=== PATIENT | female | born 1975 | race African-American/Black ===

== ENCOUNTER 2016-05-19 05:36 | Emergency (ER) | payer BC, OTHER ==
[~2016-05-19] VITALS: Ht 149.9 cm; Wt 85.7 kg
[~2016-05-19 05:36] MED LIST: ALEVE PO; ALEVE220 MG PO; Aspirin E.C. PO; BACTRIM,SEPT1 TABLE1 PO; CARAFATE1 GM PO; CIPRO500 MG PO; CIPRO750 MG PO; CLINDAMYCIN HC300 MG PO; CYMBALTA60 MG PO; Ceftin PO; DIFLUCAN200 MG PO; DILAUDID2 MG PO; ENDOCET 5-3251 EACH PO; ERY-TAB250 MG; ERYTHROMYCIN250 M1 PO; FLUCONAZOLE100 MG PO; FLUCONAZOLE150 MG; FLUCONAZOLE150 MG PO; GLUCAGON1 MG; GLUCAGON1 MG IM; HYDROMORPHONE HC4 MG PO; IBUPROFEN800 MG PO; INSULIN PUMP SCCONT; IRON INFUSION IV; JANUVIA100 MG; KEFLEX500 MG PO; LASIX20 MG PO; LEVEMIR100 UNIT/2; LEVEMIR100 UNIT/2 SC; LEVO-T88 MCG PO; LEVOFLOXACIN500 MG PO; LEVOTHYROXINE88 MCG; LEVOTHYROXINE88 MCG PO; LORTAB 5-325 M1 EACH PO; MAVIK1 MG PO; MOTRIN600 MG PO; MOTRIN800 MG PO; MULTIPLE VITAM1 EACH PO; NOVOLIN N100 UNITS/; NOVOLOG 10100 UNITS/; NOVOLOG 10100 UNITS/ SQ; OMEPRAZOLE40 M1; ONDANSETRON ODT4 MG; OXYBUTYNIN CHLOR5 M1; PANTOPRAZOLE SO40 MG; PERCOCET 5/31 TABLET PO; PHENAZOPYRIDIN200 MG; PRAVASTATIN SOD10 MG PO; PRAVASTATIN SOD40 MG; PROTONIX40 MG PO; PROzac PO; RANITIDINE HCL300 MG; SUCRALFATE1 GM; TRANDOLAPRIL1 MG; VICTOZA 2-0.6 MG/0.1 SC; VITAMIN D5000 UNI1 PO; [UNRECOGNIZED DRUG - OTHER] PO; [UNRECOGNIZED DRUG - SUPPLY]
[2016-05-19 06:15] LABS: HEMATOCRIT 41.1 % (36.0-46.0); MCHC 33.8 G/DL (30.0-36.0); MCV 88.6 FL (83-99); MEAN PLAT.VOLUME 9.1 uM^3 (9.5-12.4); PLATELET COUNT 358 K/uL (156-360); RBC DIS.WIDTH-CV 12.1 % (11.8-14.6); RBC DIS.WIDTH-SD 39.5 % (39-53); RED BLOOD COUNT 4.64 M/uL (3.80-5.20); WHITE BLOOD COUNT 7.3 K/uL (4.1-10.2)
[2016-05-19 06:26] LABS: CHLORIDE 103 mEq/L (99-109); POTASSIUM 3.4 mEq/L (3.7-5.4); SODIUM 139 mEq/L (136-147)
[2016-05-19 06:28] LABS: GLUCOSE 94 mg/dL (70-99)
[2016-05-19 06:29] LABS: ANION GAP 13 MEQ/L (2-14)
[2016-05-19 06:30] LABS: TOTAL BILIRUBIN 0.6 mg/dL (0.0-1.0)
[2016-05-19 06:31] LABS: ALKALINE PHOSPHATASE 52 IU/L (3-129)
[2016-05-19 06:32] LABS: GFR ESTIMATE (CALCULATED) > 59 mL/min/
[2016-05-19 06:33] LABS: UREA NITROGEN (BUN) 6 mg/dL (9-23)
[2016-05-19 06:35] LABS: LIPASE 32 U/L (1.0-51.0)
[2016-05-19 06:41] LABS: QUANTITATIVE HCG < 4.0 MIU/ML
[2016-05-19 08:40] LABS: ADD MIUA? YES; BILIRUBIN NEGATIVE; BLOOD NEGATIVE; COLOR YELLOW ((YELLOW)); GLUCOSE (STRIP) NEGATIVE; KETONES NEGATIVE; LEUKOCYTES NEGATIVE; NITRITE NEGATIVE; PROTEIN (STRIP) NEGATIVE; SPECIFIC GRAVITY 1.011 (1.000-1.030); UROBILINOGEN 0.2 MG/DL (0.2-1.0)
[2016-05-19 08:52] LABS: BACTERIA RARE /HPF; BUDDING YEAST 2+; EPITHELIAL CELLS RARE /HPF; MUCUS TRACE /LPF; RED BLOOD CELLS NONE SEEN /HPF (0-5); UCUL ADDED? NO; UNCLASSIFIED CASTS 0-5 /LPF; WHITE BLOOD CELLS 0-5 /HPF (0-5)
[2016-05-19] MEDS ORDERED: ZOFRAN ODT4 MG PO (11:36)
[2016-05-19] MEDS ORDERED: BENTYL10 MG PO (11:36)
[2016-05-19] MEDS ORDERED: BENTYL20 MG PO (11:39)
[2016-05-19 12:39] VITALS: BP 98/72
== END 2016-05-19 12:41 | disposition home or self-care (01) ==
LOC: EME → EDBD 05:36 → EME 12:41
PROVIDERS: Emergency Medicine
DX: R10.13 Epigastric pain (principal); R11.2 Nausea with vomiting, unspecified; E11.43 Type 2 diabetes mellitus with diabetic autonomic (poly)neuropathy; K21.9 Gastro-esophageal reflux disease without esophagitis; E03.9 Hypothyroidism, unspecified; Z87.442 Personal history of urinary calculi; Z96.41 Presence of insulin pump (external) (internal)
CPT/HCPCS: 74177; 76705; 80053; 81003; 83690; 84702; 85027; 87210; 87491; 87591; 93005; 99281; 99285; J2270; J2405; J2765; J3010; J7030

== ENCOUNTER 2016-07-27 08:03 | Inpatient (IN) | payer BC, OTHER ==
[~2016-07-27] VITALS: Ht 149.9 cm; Wt 88.2 kg
[~2016-07-27 08:03] MED LIST changes: +BENTYL10 MG PO; +BENTYL20 MG PO; +SYNTHROID75 MCG PO; +ZOFRAN ODT4 MG PO
[2016-08-04 10:45] LABS: POINT-OF-CARE METER ID UU14174212
[2016-08-04] MEDS ORDERED: CEPHALEXIN500 MG PO (10:45)
[2016-08-04] MEDS ORDERED: PRAVASTATIN SOD20 MG PO (10:46)
[2016-08-04 10:52] VITALS: BP 119/85
[2016-08-04 13:49] LABS: POINT-OF-CARE METER ID UU13113675
[2016-08-04 16:58] VITALS: BP 121/73
[2016-08-04 18:52] LABS: HEMATOCRIT 37.4 % (36.0-46.0); MCH 30.7 PG (29.0-34.0); MCHC 33.7 G/DL (30.0-36.0); MEAN PLAT.VOLUME 8.7 uM^3 (9.5-12.4); PLATELET COUNT 282 K/uL (156-360); RBC DIS.WIDTH-CV 12.3 % (11.8-14.6); RBC DIS.WIDTH-SD 41.3 % (39-53); RED BLOOD COUNT 4.11 M/uL (3.80-5.20); WHITE BLOOD COUNT 11.1 K/uL (4.1-10.2)
[2016-08-04 19:15] LABS: ANION GAP 10 MEQ/L (2-14); CHLORIDE 104 MEQ/L (99-109); GFR ESTIMATE (CALCULATED) > 59 mL/min/; GLUCOSE 128 mg/dL (70-99); POTASSIUM 3.9 MEQ/L (3.7-5.4); SAMPLE HEMOLYSIS CHECK 0; SAMPLE ICTERIC CHECK 0; SAMPLE LIPEMIA CHECK 0; SODIUM 138 MEQ/L (136-147); UREA NITROGEN (BUN) 7 mg/dL (9-23)
[2016-08-04 19:30] VITALS: BP 115/62
[2016-08-04 21:34] LABS: POINT-OF-CARE METER ID UU14162508
[2016-08-04 23:16] VITALS: BP 119/75
[2016-08-05 03:26] VITALS: BP 115/72
[2016-08-05 06:55] LABS: HEMATOCRIT 33.4 % (36.0-46.0); MCH 31.1 PG (29.0-34.0); MCHC 34.1 G/DL (30.0-36.0); MCV 91.3 FL (83-99); MEAN PLAT.VOLUME 9.2 uM^3 (9.5-12.4); PLATELET COUNT 248 K/uL (156-360); RBC DIS.WIDTH-CV 12.3 % (11.8-14.6); RBC DIS.WIDTH-SD 41.1 % (39-53); RED BLOOD COUNT 3.66 M/uL (3.80-5.20); WHITE BLOOD COUNT 8.4 K/uL (4.1-10.2)
[2016-08-05 07:21] LABS: ANION GAP 8 MEQ/L (2-14); CHLORIDE 102 MEQ/L (99-109); GFR ESTIMATE (CALCULATED) > 59 mL/min/; GLUCOSE 97 mg/dL (70-99); POTASSIUM 3.7 MEQ/L (3.7-5.4); SAMPLE HEMOLYSIS CHECK 0; SAMPLE ICTERIC CHECK 0; SAMPLE LIPEMIA CHECK 0; SODIUM 138 MEQ/L (136-147); UREA NITROGEN (BUN) 7 mg/dL (9-23)
[2016-08-05 07:27] VITALS: BP 108/67
[2016-08-05 11:17] LABS: POINT-OF-CARE METER ID UU14162508
[2016-08-05 11:22] VITALS: BP 98/57
[2016-08-05 16:46] VITALS: BP 106/56
[2016-08-06 00:38] VITALS: BP 96/54
[2016-08-06 07:08] LABS: HEMATOCRIT 33.4 % (36.0-46.0); MCH 31.1 PG (29.0-34.0); MCHC 34.7 G/DL (30.0-36.0); MCV 89.5 FL (83-99); MEAN PLAT.VOLUME 9.3 uM^3 (9.5-12.4); PLATELET COUNT 237 K/uL (156-360); RBC DIS.WIDTH-CV 12.1 % (11.8-14.6); RBC DIS.WIDTH-SD 39.9 % (39-53); RED BLOOD COUNT 3.73 M/uL (3.80-5.20); WHITE BLOOD COUNT 6.7 K/uL (4.1-10.2)
[2016-08-06 07:39] LABS: ANION GAP 7 MEQ/L (2-14); CHLORIDE 103 MEQ/L (99-109); GFR ESTIMATE (CALCULATED) > 59 mL/min/; GLUCOSE 89 mg/dL (70-99); POTASSIUM 3.7 MEQ/L (3.7-5.4); SAMPLE HEMOLYSIS CHECK 0; SAMPLE ICTERIC CHECK 0; SAMPLE LIPEMIA CHECK 0; SODIUM 140 MEQ/L (136-147); UREA NITROGEN (BUN) 10 mg/dL (9-23)
[2016-08-06 07:55] VITALS: BP 114/67
[2016-08-06] MEDS ORDERED: TRAMADOL HCL50 MG PO (10:05)
== END 2016-08-06 12:07 | disposition home or self-care (01) | DRG 747 ==
LOC: SDC 08:03 → EDSTATUS 09:13 → SDC 14:01 → 2SOUTH 08-04 09:39 → 2EAST 08-04 10:01 → 2SOUTH 08-04 10:31 → 2EAST 08-04 16:13 → 2SOUTH 11-04 09:17
PROVIDERS: Obstetrics & Gynecology Gynecologic Oncology
DX: C51.0 Malignant neoplasm of labium majus (principal); Z88.0 Allergy status to penicillin; Z88.8 Allergy status to other drugs, medicaments and biological substances; R07.9 Chest pain, unspecified
CPT/HCPCS: 36415; 80048; 82948; 85027; 86900; 86901; 86920; 88304; 88305; 93005; 94799; J0131; J0330; J1580; J1650; J1815; J1885; J2175; J2405; J2765; J3010; J7050; J7120